=== PATIENT | female | born 1975 | race Caucasian/White ===

== ENCOUNTER 2016-12-08 07:24 | Emergency (ER) | payer OTHER ==
[~2016-12-08] VITALS: Ht 149.9 cm; Wt 109.0 kg
[~2016-12-08 07:24] MED LIST: AKWA TEARS15 ML BOTH EYES; AMBIEN10 M1 PO; BACTRIM,SEPT1 TABLET PO; CIPRO500 MG PO; FLEXERIL10 MG PO; GLUCOPHAGE1000 MG PO; IBUPROFEN800 MG PO; KEFLEX500 MG PO; LEVOFLOXACIN250 MG PO; NAPROSYN500 MG PO; NORCO 7.5/321 TABLET PO; PERCOCET 5/31 TABLET PO; PHENERGAN25 MG PR; PREDNISONE10 MG PO; PRINIVIL10 MG PO; PROMETHAZINE HC25 M1 PO; PYRIDIUM200 MG PO; SAPHRIS10 MG SL; SAPHRIS5 MG SL; TYLENOL WITH C1 EACH PO; VISTARIL50 MG PO; XANAX1 MG PO; ZANTAC150 MG PO; ZANTAC300 MG PO; ZOFRAN ODT4 MG PO; ZOLOFT100 MG PO
[2016-12-08 08:17] LABS: HEMATOCRIT 41.5 % (36.0-46.0); MCH 28.6 PG (29.0-34.0); MCV 84.2 FL (83-99); MEAN PLAT.VOLUME 10.5 uM^3 (9.5-12.4); PLATELET COUNT 223 K/uL (156-360); RBC DIS.WIDTH-CV 13.6 % (11.8-14.6); RBC DIS.WIDTH-SD 41.2 % (39-53); RED BLOOD COUNT 4.93 M/uL (3.80-5.20); WHITE BLOOD COUNT 9.2 K/uL (4.1-10.2)
[2016-12-08 08:41] LABS: CHLORIDE 110 mEq/L (99-109); POTASSIUM 3.8 mEq/L (3.7-5.4); SODIUM 139 mEq/L (136-147)
[2016-12-08 08:43] LABS: GLUCOSE 138 mg/dL (70-99)
[2016-12-08 08:44] LABS: ANION GAP 9 MEQ/L (2-14)
[2016-12-08 08:47] LABS: GFR ESTIMATE (CALCULATED) > 59 mL/min/
[2016-12-08 08:48] LABS: UREA NITROGEN (BUN) 8 mg/dL (9-23)
[2016-12-08 08:55] LABS: QUANTITATIVE HCG < 4.0 MIU/ML
[2016-12-08 09:41] LABS: ADD MIUA? YES; BILIRUBIN NEGATIVE; BLOOD LARGE; COLOR YELLOW ((YELLOW)); GLUCOSE (STRIP) NEGATIVE; KETONES NEGATIVE; LEUKOCYTES NEGATIVE; NITRITE NEGATIVE; PROTEIN (STRIP) 30; SPECIFIC GRAVITY 1.032 (1.000-1.030); UROBILINOGEN 0.2 MG/DL (0.2-1.0)
[2016-12-08 09:55] LABS: RED BLOOD CELLS 15-20 /HPF (0-5)
[2016-12-08 09:56] LABS: BACTERIA NONE SEEN; CASTS NONE SEEN /LPF; CRYSTALS NONE SEEN; EPITHELIAL CELLS NONE SEEN; MUCUS NONE SEEN; UCUL ADDED? NO; WHITE BLOOD CELLS NONE SEEN /HPF (0-5)
[2016-12-08] MEDS ORDERED: FIORICET,ESG1 TABLET PO (10:05)
[2016-12-08 10:08] VITALS: BP 130/56
== END 2016-12-08 10:30 | disposition home or self-care (01) ==
LOC: EME 07:24
PROVIDERS: Nurse Practitioner Family
DX: R51 Headache (principal); I10 Essential (primary) hypertension; E11.65 Type 2 diabetes mellitus with hyperglycemia; H53.143 Visual discomfort, bilateral; T46.4X6A Underdosing of angiotensin-converting-enzyme inhibitors, initial encounter; T38.3X6A Underdosing of insulin and oral hypoglycemic [antidiabetic] drugs, initial encounter; Z91.128 Patient's intentional underdosing of medication regimen for other reason; Z91.19 Patient's noncompliance with other medical treatment and regimen; Z79.84 Long term (current) use of oral hypoglycemic drugs; Z88.1 Allergy status to other antibiotic agents; Z91.040 Latex allergy status
CPT/HCPCS: 80048; 81003; 82009; 84702; 85027; 99281; 99284